=== PATIENT | female | born 1930 | race Caucasian/White ===

== ENCOUNTER 2019-01-04 12:05 | Emergency (ER) | payer OTHER, BC ==
--- NOTE | 2019-01-04 12:36 | PDOC ---
History of Present Illness - General Chief Complaint: Respiratory Stated Complaint: Respiratory Time Seen by Provider: 01/04/19 12:13 History Source: Patient, Family (Son at bedside) Exam Limitations: No Limitations - History of Present Illness Initial Comments: HPI: 88 y/o female presenting to [facility] ER from [facility] after pt was found to have water on the lungs on a chest radiograph. The pt denies any complaints on arrival. Is unsure of the reason the film was obtained. Denies coughing, shortness of breath, orthopnea, or bilateral lower extremity swelling. Of note, the pt fell last week and was evaluated at [facility]. She was found to have a small hairline fracture in left groin. Is in the process of starting rehab. Pts son is at bedside and corroborates the pts story. PCP: Dr. Sommer [facility] Hx: - Afib (on Coumadin) Review of Systems: In addition to that documented in the HPI above, the additional ROS was obtained : Constitutional: Denies fevers or chills Head: Denies vision changes ENMT: Denies sore throat CV: Denies chest pain Resp: Denies SOB GI: Denies vomiting or diarrhea : Denies painful urination MSK: Per HPI Skin: Denies new rashes Neuro: Denies new numbness or tingling or weakness Endocrine: Denies polyuria Heme: Denies bleeding or bruising Physical Examination: Constitutional: Well-developed, well-nourished elderly adult female in no acute distress or obvious discomfort. Found semi-fowlers on hospital bed. Alert and oriented x4. Answered all questions appropriately and completely. Speech was non -labored, non-pressured. Head: Normocephalic. No obvious external signs of trauma. Cardiovascular / Chest: Irregularly irregular rate and rhythm. No murmur, rubs , clicks, or gallops. Peripheral pulses: radial pulses full. Trace pretibial edema. No tenderness to anterior chest wall. Respiratory: Breathing unlabored. Equal chest rise and fall. Clear to auscultation bilaterally. No stridor, no wheezing, no rhonchi. Gastrointestinal: abdomen is soft, non-tender, non-distended. Neuro: Alert and oriented. Moving all four extremities spontaneously. Skin: Warm, dry, and intact. Psych: Affect: appropriate. Mood: normal. MDM: *Reviewed vital signs, nursing notes, and prior visit documentation (if available). 88 y/o female presenting for evaluation of reportedly abnormal CXR obtained at [facility] today. No complaint on arrival. Afebrile. Vitals unremarkable for hypotension or tachycardia. Physical exam as described above. Well appearing. Low suspicion for acute pulmonary or cardiac pathology. CXR revealed scarring and calcifications without any evidence of acute pathology. No prior studies available for comparison. Called Pts PCPs office but told no CXR on file. Called [facility] and told unable to send CXR obtained in house. Continue to have low suspicion for acute pathology. Discussed imaging results with pt and pts son. Answered all questions. Provided return precautions. Pt and son expressed verbal understanding and agreement with plan to discharge home with outpatient follow up. Provided disk copy of image to family so it could be compared to older records. Past History - Past Medical History Allergies/Adverse Reactions: Allergies Allergy/AdvReac Type Severity Reaction Status Date / Time No Known Allergies Allergy Verified 01/04/19 12:37 Home Medications: Ambulatory Orders Acetaminophen [Tylenol] 325 mg PO TID 01/04/19 Cefuroxime Axetil [Cefuroxime] 500 mg PO BID 01/04/19 Digoxin 125 mcg PO AM 01/04/19 Docusate Sodium 100 mg PO TID 01/04/19 Sennosides [Senna] 2 tab PO HS 01/04/19 Verapamil HCl 120 mg PO DAILY 01/04/19 Warfarin Sodium [Coumadin] 9 mg PO HS 01/04/19 traMADol HCL [Ultram] 50 mg PO Q8H PRN 01/04/19 Vital Signs - Vital Signs #1 Blood Pressure: 130/76 MAP: 94 BP Location: Right Arm Blood Pressure Position: Sitting Pulse Rate: 64 Respiratory Rate: 16 Temperature: 98.3 F Temperature Source: Oral *DC/Admit/Observation/Transfer Diagnosis at time of Disposition: Observation and evaluation for suspected conditions not found - Discharge Dispostion Disposition: HOME Condition at time of disposition: Good Decision to Admit order: No - Referrals Referrals: Dayne Sommer MD [Primary Care Provider] - - Patient Instructions Additional Instructions: You were seen today with concern for an abnormal chest xray and concern for fluid on the lungs. The xray was repeated in the department and did not reveal any concerning findings. However, the read of the image is limited without previous chest xrays available for comparison. I have attached a disk with the image for you to take to your primary care doctors office for comparison and review. Follow up with your primary care doctor within the next 3-4 days. You will need to call to make an appointment. Go to the nearest emergency department if your condition worsens or you feel like you need additional emergency evaluation. Print Language: SINHALA - Post Discharge Activity
[2019-01-04 12:54] VITALS: BMI 22.1
[2019-01-04 13:37] VITALS: BP 130/76; PULSE 64; TEMP 98.3
--- NOTE | 2019-01-04 14:10 | PDOC ---
Documentation entered by Terry Albert SCRIBE, acting as scribe for Gali Mahmood MD. Gali Mahmood MD: This documentation has been prepared by the scribe, Terry Albert SCRIBE, under my direction and personally reviewed by me in its entirety. I confirm that the documentation accurately reflects all work, treatment, procedures, and medical decision making performed by me. Attending Attestation - Resident Resident Name: Mike Alvarez - ED Attending Attestation I have performed the following: I have examined & evaluated the patient, The case was reviewed & discussed with the resident, I agree w/resident's findings & plan, Exceptions are as noted - HPI HPI: 01/04/19 13:34 The patient is a 88 year old female with a significant past medical history of afib who presents to the emergency department via EMS from custodial for abnormal chest x-ray earlier today. As per EMS, the patient was sent to the ED for further evaluation of a chest x-ray that showed fluid on the lungs. The patient denies any symptoms or complaints. It is noted that the patient is at the detention for a left hip fracture. - Physicial Exam PE: GENERAL: Awake, alert, and fully oriented, in no acute distress HEAD: No signs of trauma EYES: PERRLA, EOMI, sclera anicteric, conjunctiva clear ENT: Auricles normal inspection, hearing grossly normal, nares patent, oropharynx clear without exudates. Moist mucosa NECK: Normal ROM, supple, no lymphadenopathy, JVD, or masses LUNGS: Breath sounds equal, clear to auscultation bilaterally. No wheezes, and no crackles HEART: Regular rate and rhythm, normal S1 and S2, no murmurs, rubs or gallops ABDOMEN: Soft, nontender, normoactive bowel sounds. No guarding, no rebound. No masses EXTREMITIES: Normal range of motion, no edema. No clubbing or cyanosis. No cords, erythema, or tenderness NEUROLOGICAL: Cranial nerves II through XII grossly intact. Normal speech. Motor and sensation intact SKIN: Warm, Dry, normal turgor, no rashes or lesions noted. - Medical Decision Making CXR obtained in ED, no focal consolidation. Patient has no respiratory symptoms , lungs are clear, and vital signs are normal. 01/04/19 13:48 EXAM: PA Chest: Shortness of breath. There are no prior studies for comparison. The lordotic projection reveals a large heart, sclerotic knob, slightly prominent dot with costal cartilage calcifications and some scarring and calcifications in the upper lobes. A discrete infiltrate is not seen. There is a scoliosis with degenerative spine and shoulder changes. Correlation recommended. Comparison to prior studies may be of help. Reported By: Fazal Alfaro MD
--- NOTE | 2019-01-05 11:44 | EKG ---
Test Reason : Blood Pressure : / mmHG Vent. Rate : 116 BPM Atrial Rate : 117 BPM P-R Int : 000 ms QRS Dur : 080 ms QT Int : 318 ms P-R-T Axes : 000 054 013 degrees QTc Int : 442 ms ATRIAL FIBRILLATION WITH RAPID VENTRICULAR RESPONSE ABNORMAL ECG WHEN COMPARED WITH ECG OF 19-MAR-2009 15:20, ATRIAL FIBRILLATION HAS REPLACED SINUS RHYTHM VENT. RATE HAS INCREASED BY 55 BPM NON-SPECIFIC CHANGE IN ST SEGMENT IN INFERIOR LEADS ST MORE DEPRESSED ANTERIOR LEADS NONSPECIFIC T WAVE ABNORMALITY NOW EVIDENT IN INFERIOR LEADS NONSPECIFIC T WAVE ABNORMALITY NO LONGER EVIDENT IN LATERAL LEADS Confirmed by MARION LARA MD ([id number]) on 01/05/2019 11:44:16 AM Referred By: Confirmed By:MARION LARA MD
== END 2019-01-04 14:55 | disposition home or self-care (01) ==
LOC: JER 12:05 → SUPCPDRO 12:05 → JER 14:55
DX: Z04.89 Encounter for examination and observation for other specified reasons (principal); R91.8 Other nonspecific abnormal finding of lung field; Z87.81 Personal history of (healed) traumatic fracture; I48.91 Unspecified atrial fibrillation; Z79.01 Long term (current) use of anticoagulants
CPT/HCPCS: 71045-TC-FY; 93005; 93010; 99282-25